=== PATIENT | female | born 1985 | race Hispanic/Latino ===

== ENCOUNTER 2017-10-07 14:37 | Emergency (ER) | payer OTHER ==
[2017-10-07 16:58] LABS: BASO % 0.7 % (0.0-2.0); EOS # 0.5 K/uL (0.0-0.7); EOS % 7.9 % (0.0-4.0); HEMOGLOBIN 12.7 g/dL (11.0-16.0); LYMPH # 0.8 K/uL (1.0-4.3); LYMPH % 12.3 % (20.0-40.0); MEAN CELL VOLUME 90.6 fL (81.0-99.0); MEAN CORPUSCULAR HEMOGLOBIN 30.7 pg (27.0-31.0); MEAN CORPUSCULAR HGB CONC 33.9 g/dL (33.0-37.0); MEAN PLATELET VOLUME 9.1 fL (7.2-11.7); MONO # 0.6 K/uL (0.0-0.8); MONO % 9.7 % (0.0-10.0); NEUT # 4.6 K/uL (1.8-7.0); NEUT % 69.4 % (50.0-75.0); PLATELET COUNT 206 K/uL (130-400); RBC 4.15 Mil/uL (3.80-5.20); RED CELL DISTRIBUTION WIDTH 13.3 % (11.5-14.5); WHITE BLOOD COUNT 6.7 K/uL (4.8-10.8)
--- NOTE | 2017-10-07 17:25 | C.PDOC ---
History Of Present Illness 32 year old female presents to the emergency department for valuation of possible malaria. Patient reports she was sent to the ED by her [employer] insurance company; she currently lives in [facility] (for the last 7 years). She admits to fever, chills, diarrhea, and diffuse body aches for several days. (+) prior episodes of malaria. She denies any other symptoms or medical problems. Time Seen by Provider: 10/07/17 16:15 Chief Complaint (Nursing): Medical Clearance History Per: Patient History/Exam Limitations: no limitations Onset/Duration Of Symptoms: Days Current Symptoms Are (Timing): Still Present Severity: Mild Recent travel outside of the [place]: Yes Additional History Per: Patient Past Medical History Reviewed: Historical Data, Nursing Documentation, Vital Signs Vital Signs: Last Vital Signs Temp 98.1 F 10/07/17 19:02 Pulse 63 10/07/17 19:02 Resp 20 10/07/17 19:02 BP 123/62 10/07/17 19:02 Pulse Ox 96 10/07/17 19:02 - Medical History PMH: No Chronic Diseases Other PMH: Malaria Surgical History: No Surg Hx Family History: States: No Known Family Hx - Social History Hx Alcohol Use: Yes Hx Substance Use: No Review Of Systems Constitutional: Positive for: Fever, Chills, Other (Body aches ) Cardiovascular: Negative for: Chest Pain, Palpitations Respiratory: Negative for: Cough, Shortness of Breath Gastrointestinal: Positive for: Diarrhea. Negative for: Nausea, Vomiting, Abdominal Pain Skin: Negative for: Rash Neurological: Negative for: Weakness Physical Exam - Physical Exam Appears: Well, Non-toxic, No Acute Distress Skin: Normal Color, Warm, Dry, No Rash Eye(s): bilateral: Normal Inspection Oral Mucosa: Moist Neck: Normal, Supple Cardiovascular: Rhythm Regular Respiratory: Normal Breath Sounds, No Rales, No Rhonchi, No Wheezing Gastrointestinal/Abdominal: Normal Exam, Bowel Sounds, Soft, No Tenderness Extremity: Normal ROM Neurological/Psych: Oriented x3 Gait: Steady ED Course And Treatment - Laboratory Results Result Diagrams: 10/07/17 16:39 10/07/17 16:39 O2 Sat by Pulse Oximetry: 99 (RA) Pulse Ox Interpretation: Normal Progress Note: Bloodwork, including malaria test, ordered and reviewed. 5:55pm - Hematology called, smear still being processed - they expect it to take >30 min. Reevaluation Time: 19:00 Reassessment Condition: Improved (Patient resting comfortably. Malaria parasite test (-). Patient instructed to follow up with her PMD in 1-2 days, and understands she should return to ED if she has any concerning symptoms.) Disposition Counseled Patient/Family Regarding: Studies Performed, Diagnosis, Need For Followup - Disposition Referrals: [facility] [Outside] Disposition: HOME/ ROUTINE Disposition Time: 19:00 Condition: STABLE Instructions: Viral Syndrome (DC) Forms: General Discharge Instructions, [facility] (Urdu) Print Language: MALTESE - Clinical Impression Clinical Impression: Viral syndrome - Scribe Statement The provider has reviewed the documentation as recorded by the Scribe (Desiree Ortega) Provider Attestation: All medical record entries made by the Scribe were at my direction and personally dictated by me. I have reviewed the chart and agree that the record accurately reflects my personal performance of the history, physical exam, medical decision making, and the department course for this patient. I have also personally directed, reviewed, and agree with the discharge instructions and disposition.
[2017-10-07 17:31] LABS: ALB/GLOB RATIO 1.4 (1.0-2.1); ALBUMIN 4.3 g/dL (3.5-5.0); ALT/SGPT 26 U/L (9-52); AST/SGOT 38 U/L (14-36); BLOOD UREA NITROGEN 17 mg/dL (7-17); CALCIUM 9.9 mg/dl (8.6-10.4); GFR AFRICAN-AMERICAN > 60; GFR NON-AFRICAN AMERICAN > 60
[2017-10-07 18:50] LABS: INTRACELLULAR PARASITE NEGATIVE (NEGATIVE)
[2017-10-07 19:03] VITALS: BP 123/62; PULSE 63; RESP 20; TEMP 98.1
[2017-10-20 08:49] VITALS: O2SAT 99
== END 2017-10-07 19:03 | disposition home or self-care (01) ==
LOC: C.ER 14:37
DX: B34.9 Viral infection, unspecified (principal)